=== PATIENT | female | born 1970 | race Caucasian/White ===

== ENCOUNTER → 2016-10-24 | Day surgery (SDC) | payer BC ==
[2016-10-10 08:52] VITALS: Ht 157.5 cm; Wt 73.6 kg
[~2016-10-24] VITALS: Ht 157.5 cm; Wt 73.6 kg
[~2016-10-24] MED LIST: ARTHRITIS MEDICATION PO; ASCA500 PO; ATROPINE SULFATE 0.1 MG/ML 5ML SYR IV PRN; BUPIVACAINE/EPINEPHRINE 0.25% 10 ML VIAL ONE; CEFAZOLIN 2000 MG/60 ML D5W IV SCH; CYAN10004 PO; DEXAMETHASONE SOD INJ 4 MG/ML VIAL ONE; DIPH25TA61 PO; EFF75 PO; EpHEDrine SULFATE 50MG/5ML SYR ONE; EpHEDrine SULFATE INJ 50 MG/ML AMP IV PRN; EpINEphrine INJ 1MG/ML AMP 1 MG/ML AMP ONE; FENTANYL CITRATE INJ 50 MCG/1 ML 2 ML VIAL IV PRN; FENTANYL CITRATE INJ 50 MCG/1 ML 2 ML VIAL ONE; HYDROmorphone INJ 1 MG/ML SYR IV PRN; KETO10TA PO; LIDOCAINE HCL 1% MPF 2 ML VIAL ONE; LIDOCAINE HCL 2% 2 ML VIAL (20MG/ML) ONE; MIDAZOLAM HCL 1 MG/ML 2ML VIAL ONE; MIGRAINE MEDICATION PO; ONDANSETRON INJ 2 MG/ML 2 ML VIAL IV PRN; ONDANSETRON INJ 2 MG/ML 2 ML VIAL ONE; OXYC-57 PO; OXYCODONE/ACETAMINOPHEN 5-325 TAB PO PRN; PROMETHAZINE HCL INJ 12.5 MG in SODIUM CHLORIDE 0.9% 50ML 50 ML IV PRN; PROPOFOL IV EMULSION 10 MG/ML 20 ML VIAL IV ONE; PRT/20 PO; ROPIVACAINE 0.5% 5 MG/ML 30 ML VIAL ONE; SODIUM CHLORIDE 0.9% 1000ML 1,000 ML IV SCH
[2016-10-24] MEDS: LACTATED RINGER'S 1000ML 1,000 ML IV SCH ×2 (08:41→12:06)
--- NOTE | 2016-10-24 08:53 | History & Physical Bridge - [place] ---
H&P Re-Evaluation Bridge Note: I have examined the patient, reviewed the History & Physical and in the interval since the performance of the History & Physical I have noted the following changes of clinical significance: No changes noted
--- NOTE | 2016-10-24 11:39 | [facility] Post Operative Brief Note ---
Immediate Operative Summary Operative Date Oct 24, 2016. Pre-Operative Diagnosis Right shoulder medium rotator cuff tear Post-Operative Diagnosis Same as preop Procedure(s) Performed Right Shoulder Arthroscopy, Medium Rotator Cuff Repair Surgeon Dr. Arenas Credit Card Clerk Surgeon(s) Hardy Alexandre PA-C Estimated Blood Loss 5 mL Findings as above Specimens None Complication(s) None Disposition Recovery Room / PACU
--- NOTE | 2016-10-24 11:53 | Anesthesia Progress Nt - [facility] ---
Anesthesia Post Op Note Date & Time Oct 24, 2016 at 11:53 Vital Signs Pain Intensity: 0 Vital Signs Past 12 Hours Date Time Temp Pulse Resp B/P (MAP) Pulse Ox O2 Delivery O2 Flow Rate FiO2 10/24/16 10:21 56 14 100 10/24/16 10:21 76 16 148/91 100 10/24/16 10:16 59 10/24/16 10:16 59 13 148/84 100 10/24/16 10:11 129/83 10/24/16 10:10 57 10/24/16 10:10 59 13 100 10/24/16 10:06 138/88 10/24/16 10:02 56 10 100 10/24/16 10:02 57 10/24/16 10:01 58 15 125/87 100 10/24/16 10:01 58 10/24/16 09:56 130/90 10/24/16 09:51 58 13 99 10/24/16 09:51 56 13 144/92 100 10/24/16 09:46 57 10/24/16 09:46 56 12 134/86 100 10/24/16 09:41 139/91 10/24/16 09:38 162/111 10/24/16 09:36 61 0 98 10/24/16 09:36 61 10/24/16 09:31 68 10/24/16 09:31 73 0 99 10/24/16 09:26 66 0 99 10/24/16 09:26 65 10/24/16 09:21 58 15 10/24/16 09:21 58 15 98 10/24/16 08:22 36.9 60 18 158/103 (121) 97 Room Air Notes Mental Status: alert / awake / arousable, participated in evaluation Pt Amnestic to Procedure: Yes Nausea / Vomiting: adequately controlled Pain: adequately controlled Airway Patency, RR, SpO2: stable & adequate BP & HR: stable & adequate Hydration State: stable & adequate Anesthetic Complications: no major complications apparent
--- NOTE | 2016-10-24 11:58 | Discharge Instructions-[facility] ---
Discharge Instructions Date of Service Oct 24, 2016. Visit Reason for Visit: Right Shoulder Full Thickness Rotator Cuff Tear Discharge Discharge Diagnosis / Problem: SAME ABOVE Discharge Goals Goal(s): Decrease discomfort, Improve function Medications Stopped Medications Name(s): arthritis medication stopped. last dose on friday. Restart Stopped Medication(s): MAY RESTART MEDICATION ON 10/25/2016 LONG THEY ARE NOT ANTI INFLAMMATORIES MAY START RETAKING ANTI INFLAMMATORIES AFTER YOU HAVE COMPLETED THE TORADOL Activity Recommendations Activity Limitations: as noted below Lifting Limitations: until after follow-up appointment Exercise/Sports Limitations: until after follow-up appointment Shower/Bathe: tomorrow Anesthesia . Post Anesthesia Instructions: If you have had General Anesthesia or IV Sedation: * Do not drive today. * Resume driving when surgeon permits. * Do not make important decisions or sign legal documents today. * Call surgeon for: 1. Temperature elevations greater than 101 degrees F. 2. Uncontrollable pain. 3. Excessive bleeding. 4. Persistent nausea and vomiting. 5. Medication intolerance (nausea, vomiting or rash). * For nausea and vomiting use only clear liquids such as: tea, soda, bouillon until nausea subsides, then gradually increase diet as tolerated. * If you have any concerns or questions, call your surgeon's office. If physician is unavailable and it is an emergency, call 911 or go to the nearest emergency room. . Instructions / Follow-Up Instructions / Follow-Up MEDICATIONS: * Resume previous medications unless instructed otherwise by your surgeon. * Always take pain medication on a full stomach or with food to avoid upset stomach. * Do not drink alcohol or drive while taking narcotics. * Ibuprofen or Tylenol may be taken if narcotic not needed. SPECIAL CARE INSTRUCTIONS: __ None _X_ Keep extremity elevated and iced x 48 hours; apply ice 20-30 minutes 8-10 times/day. May remove at night. __ Sling __24 hrs/day __ Remove at night _X_ Shoulder Immobilizer (MAY REMOVE AFTER 48 HOURS ONLY TO SHOWER AND FOR THERAPY) _X_ 24 hrs/day __ Remove at night _X_ Dressing __ Maintain until seen in office, may shower with plastic over site _X_ Remove dressings in 24-48 hours and then may shower _X_ Cover incisions with band-aids after showering __ Do not remove steri-strips Call physician if chills or temperature rises above 102 degrees or pain unrelieved by prescribed pain medications at . . Diet Recommendations Home Diet: no limitations Fluid Restriction: None Procedures Procedures Performed: Right Shoulder Arthroscopy, Medium Rotator Cuff Repair Pending Studies Studies pending at discharge: no Work Instructions Return To Work: after follow-up Lifting Limitations: NO LIFTING WITH RIGHT ARM Medical Emergencies . Who to Call and When: Medical Emergencies: If at any time you feel your situation is an emergency, please call 911 immediately. . Non-Emergent Contact Non-Emergency issues call your: Primary Care Provider Call Non-Emergent contact if: you have a fever, temperature is above 101.5 . . "Provider Documentation" section prepared by Hardy Alexandre. .
[2016-10-24 12:44] VITALS: BP 151/93; PULSE 54; TEMP 36.4; O2SAT 95
--- NOTE | 2016-10-24 13:24 | Anesthesia Progress Nt - [facility] ---
Anesthesia Post Op Note Date & Time Oct 24, 2016 at 13:23 Vital Signs Pain Intensity: 0 Vital Signs Past 12 Hours Date Time Temp Pulse Resp B/P (MAP) Pulse Ox O2 Delivery O2 Flow Rate FiO2 10/24/16 12:44 36.4 54 16 151/93 (112) 95 Room Air 10/24/16 12:37 57 21 140/89 95 10/24/16 12:37 36.4 58 21 10/24/16 12:32 65 14 10/24/16 12:32 66 14 94 10/24/16 12:31 154/87 10/24/16 12:27 52 15 94 10/24/16 12:27 52 15 10/24/16 12:26 140/93 10/24/16 12:22 60 140/92 95 10/24/16 12:22 60 10/24/16 12:17 54 13 154/80 99 10/24/16 12:17 53 13 10/24/16 12:12 58 18 98 10/24/16 12:12 58 18 10/24/16 12:11 152/86 10/24/16 12:07 55 14 97 10/24/16 12:07 55 14 10/24/16 12:06 146/86 10/24/16 12:02 56 13 129/89 96 10/24/16 12:02 55 13 10/24/16 11:57 54 18 10/24/16 11:57 54 18 10/24/16 11:56 144/86 10/24/16 11:55 166/89 10/24/16 11:55 36.5 64 20 166/89 99 Mask 6 10/24/16 10:21 56 14 100 10/24/16 10:21 76 16 148/91 100 10/24/16 10:16 59 10/24/16 10:16 59 13 148/84 100 10/24/16 10:11 129/83 10/24/16 10:10 57 10/24/16 10:10 59 13 100 10/24/16 10:06 138/88 10/24/16 10:02 56 10 100 10/24/16 10:02 57 10/24/16 10:01 58 15 125/87 100 10/24/16 10:01 58 10/24/16 09:56 130/90 10/24/16 09:51 58 13 99 8/3/17 09:51 56 13 144/92 100 10/24/16 09:46 57 10/24/16 09:46 56 12 134/86 100 10/24/16 09:41 139/91 10/24/16 09:38 162/111 10/24/16 09:36 61 0 98 10/24/16 09:36 61 10/24/16 09:31 68 10/24/16 09:31 73 0 99 10/24/16 09:26 66 0 99 10/24/16 09:26 65 10/24/16 09:21 58 15 10/24/16 09:21 58 15 98 10/24/16 08:22 36.9 60 18 158/103 (121) 97 Room Air Notes Mental Status: alert / awake / arousable, participated in evaluation Pt Amnestic to Procedure: Yes Nausea / Vomiting: adequately controlled Pain: adequately controlled Airway Patency, RR, SpO2: stable & adequate BP & HR: stable & adequate Hydration State: stable & adequate Anesthetic Complications: no major complications apparent
--- NOTE | 2016-10-26 08:50 | OPERATIVE REPORT ---
DATE OF OPERATION: 10/24/2016 PREOPERATIVE DIAGNOSIS: Medium sized rotator cuff tear of the right shoulder. POSTOPERATIVE DIAGNOSIS: Same. PROCEDURES: Right shoulder diagnostic arthroscopy with limited debridement, acromioplasty, medium size rotator cuff repair and arthroscopic biceps tenodesis. SURGEON: Dr. Giovany Arenas. DIRECTOR OF TEACHING AND LEARNING: Gus Alexandre PA-C, whose assistance was necessary for positioning the arm and helping with instrumentation. ANESTHESIA: General with a right interscalene nerve block. COMPLICATIONS: None. CONDITION: Stable to PACU. INDICATIONS: Lynette is a pleasant 46-year-old female who presented to my office with right shoulder pain after injuring while carrying firewood several months ago. MRI and clinical examination were diagnostic for medium sized right rotator cuff tear. After failing extensive conservative treatment, she elected to undergo a rotator cuff repair. DESCRIPTION OF PROCEDURE: On 10/24/2016, she arrived at [facility] for the above procedure. She was seen in the preoperative holding area and the operative extremity was identified and signed. She was given a preoperative antibiotic and a right interscalene nerve block. She was taken back to the operating room, laid on the table in supine position and put under general anesthesia. She was then put into the beachchair position. The right shoulder was prepped and draped in sterile fashion. Time-out was done and the patient and operative extremity was properly identified. A scope was introduced in the posterior portal. Diagnostic arthroscopy showed no cartilage damage to the humeral head or the glenoid. The biceps tendon was grossly intact, but there was a tear of the biceps rah mechanism and the entire supraspinatus. The infraspinatus, teres minor and subscapularis were intact. An anterior portal was made. A shaver was used to do a limited debridement of the intraarticular structures. The biceps tendon was arthroscopically tenotomized. The scope was then put into the subacromial space. A lateral portal was made. A shaver was used to do a complete subacromial and subdeltoid bursectomy. An ablator was used to tease the coracoacromial ligament off the undersurface of the acromion and a 5-0 marcos was used to complete an acromioplasty of a Bigliani type 3 acromion. A shaver was used to remove any excess debris and attention was turned to the rotator cuff. An additional anterolateral portal was made and Jenny cannulas were placed in each of the lateral portals. There was a medium size crescent-shaped rotator cuff tear. The greater tuberosity was prepared with a ring curette and a microfracture. The rotator cuff was then fixed with an Arthrex SpeedBridge configuration using 4.75-mm BioComposite SwiveLock suture anchors and FiberTape. The long head of the biceps tendon was tagged with a FiberLink and brought down to the anterior lateral anchor to complete an arthroscopic biceps tenodesis. Multiple pictures were taken. The scope was placed back into the glenohumeral joint and the articular margin of the rotator cuff had been restored. Pictures were taken. Arthroscopic instruments were removed from the shoulder. Portal sites were closed with 3-0 nylon. She was then placed in a soft dressing and an abduction arm sling. She was then extubated, transferred to a litter and taken to the postanesthesia care unit in stable condition. She tolerated the procedure well. I attest to the content of the Intraoperative Record and any orders documented therein. Any exception s are noted below.
== END | disposition home or self-care (01) ==
LOC: X.SURG 07:31
PROVIDERS: ATTEND Orthopaedic Surgery
DX: S46.011A Strain of muscle(s) and tendon(s) of the rotator cuff of right shoulder, initial encounter (principal); X50.0XXA Overexertion from strenuous movement or load, initial encounter; K21.9 Gastro-esophageal reflux disease without esophagitis; F32.9 Major depressive disorder, single episode, unspecified; F17.210 Nicotine dependence, cigarettes, uncomplicated; Z79.899 Other long term (current) drug therapy